=== PATIENT | male | born 1965 | race Caucasian/White ===

== ENCOUNTER 2025-07-14 16:04 | Emergency (ER) | payer BC, OTHER ==
[2025-07-14] MEDS ORDERED: Sodium Chloride 0.9% 10 ML Syringe FLUSH PRN (16:17)
[2025-07-14 16:21] LABS: BASOPHILS ABSOLUTE AUTO 0.05 10^3/uL (0.00-0.10); BASOPHILS PERCENT AUTO 0.4 % (0.0-1.0); EOSINOPHILS ABSOLUTE AUTO 0.24 10^3/uL (0.10-0.30); EOSINOPHILS PERCENT AUTO 1.8 % (1.0-3.0); IMMATURE GRAN ABSOLUTE AUTO 0.06 10^3/uL (0.00-0.04); IMMATURE GRAN PERCENT AUTO 0.4 % (0.0-0.4); LYMPHOCYTES ABSOLUTE AUTO 3.31 10^3/uL (1.00-4.00); LYMPHOCYTES PERCENT AUTO 24.5 % (20.0-40.0); MEAN PLATELET VOLUME 9.4 fL (7.4-10.4); MONOCYTES ABSOLUTE AUTO 0.92 10^3/uL (0.10-0.80); MONOCYTES PERCENT AUTO 6.8 % (2.0-8.0); NEUTROPHILS ABSOLUTE AUTO 8.91 10^3/uL (2.50-7.00); NEUTROPHILS PERCENT AUTO 66.1 % (50.0-70.0); PLATELET COUNT,PLT 252 10^3/uL (150-400); RED BLOOD CELL COUNT 5.00 10^6/uL (4.50-6.00); RED CELL DISTRIBUTION WIDTH 12.9 % (11.5-14.5); WHITE BLOOD CELL COUNT,WBC 13.49 10^3/uL (5.00-10.00)
[2025-07-14] MEDS: Metoprolol Tartrate 5 MG/5 ML SDV IVPUSH ONE (16:25)
[2025-07-14 16:34] LABS: ALANINE AMINOTRANSFERASE,ALT 33.0 U/L (14-63); ASPARTATE AMNIOTRANSFERASE,AST 17.0 U/L (15-37); BILIRUBIN TOTAL 0.8 mg/dL (0.2-1.0); BLOOD UREA NITROGEN,BUN 22.0 mg/dL (7-18); CARBON DIOXIDE,CO2 22.6 mmol/L (21.0-32.0); CHLORIDE,CL 105.0 mmol/L (98-107); CREATININE 1.48 mg/dL (0.51-1.17); EST CRCL DRUG DOSING (CG) 52.41 mL/min; GLUCOSE RANDOM 118.0 mg/dL (70-140); POTASSIUM,K 4.4 mmol/L (3.5-5.1); PROTEIN TOTAL,TP 7.5 g/dL (6.4-8.2); SODIUM,NA 141.0 mmol/L (136-145)
[2025-07-14 16:35] LABS: ESTIMATED GFR 53.0 mL/min (>=60)
[2025-07-14] MEDS: Metoprolol Tartrate 5 MG/5 ML SDV ONE (16:37)
[2025-07-14] MEDS: Amiodarone/Dextrose,Iso-Osmotic 150 MG/100 ML Premix Bag IV ONE (17:07)
[2025-07-14 17:20] VITALS: BP 125/73; PULSE 150
[2025-07-14] MEDS: Amiodarone 360 MG/200 ML 360 MG/200 ML BAG IV SCH (17:21)
== END 2025-07-14 17:36 ==
LOC: KA.ED 16:04
DX: I48.91 Unspecified atrial fibrillation (principal); R79.89 Other specified abnormal findings of blood chemistry; Z79.82 Long term (current) use of aspirin; Z79.84 Long term (current) use of oral hypoglycemic drugs; Z79.899 Other long term (current) drug therapy
CPT/HCPCS: 36415; 71045; 80053; 83605; 84484; 85025; 93010; 96361; 96374; 96375; 99284; 99285-25; A9270-GY; J0283; J3490; J7030